=== PATIENT | male | born 1955 | race Native Hawaiian/Other Pacific Islander ===

== ENCOUNTER 2018-07-13 23:09 | Inpatient (IN) | payer MEDICARE ==
--- NOTE | 2018-07-13 23:27 | ED ---
General Adult HPI - General Chief complaint: Neuro Symptoms/Deficit Stated complaint: Slurred speech Source: patient, family Mode of arrival: ambulatory Limitations: no limitations - Related Data Home Medications Medication Instructions Recorded Confirmed Ergocalciferol (Vitamin D2) 50,000 unit PO Q30D 07/13/18 07/13/18 [Drisdol] Ibuprofen [Advil] 400 mg PO Q8HR PRN 07/13/18 07/13/18 Ranitidine HCl [Zantac] 150 mg PO BID 07/13/18 07/13/18 Allergies Allergy/AdvReac Type Severity Reaction Status Date / Time No Known Allergies Allergy Unverified 07/13/18 23:41 Review of Systems ROS Statement: Those systems with pertinent positive or pertinent negative responses have been documented in the HPI. ROS Other: All systems not noted in ROS Statement are negative. Past Medical History Past Medical History: Hyperlipidemia Additional Past Medical History / Comment(s): pancreatitis History of Any Multi-Drug Resistant Organisms: None Reported Past Surgical History: Hernia Repair, Orthopedic Surgery Additional Past Surgical History / Comment(s): cervial fusion c6-c7, rotator cuff Past Psychological History: No Psychological Hx Reported Smoking Status: Current every day smoker Past Alcohol Use History: None Reported Past Drug Use History: Marijuana General Exam Limitations: no limitations Course Vital Signs 07/13/18 23:12 Temperature 98.0 F Pulse Rate 67 Respiratory 16 Rate Blood Pressure 131/84 O2 Sat by Pulse 100 Oximetry Medical Decision Making - Medical Decision Making Dictation was produced using [employer] dictation software. please excuse any grammatical, word or spelling errors. Chief Complaint: 62-year-old male past medical history dyslipidemia pancreatitis presents with strokelike symptoms. History of Present Illness: She states his symptoms started approximately 45 minutes prior to arrival. He states it lasted only 10-15 minutes. He was in the car when he had some right lower facial drooping and slurred speech. This was noticed by his significant other also Tested this. Patient otherwise feels normal now. Denies any history of stroke. There is strong family history of stroke. Does have history of dyslipidemia. He is noncompliant with his medication. Patient denies any symptoms now. The ROS documented in this emergency department record has been reviewed and confirmed by me. Those systems with pertinent positive or negative responses have been documented in the HPI. All other systems are other negative and/or noncontributory. PHYSICAL EXAM: General Impression: Alert and oriented x3, not in acute distress HEENT: Normocephalic atraumatic, extra-ocular movements intact, pupils equal and reactive to light bilaterally, mucous membranes moist. Cardiovascular: Heart regular rate and rhythm, S1&S2 audible, no murmurs, rubs or gallops Chest: Lungs clear to auscultation bilaterally, no rhonchi, no wheeze, no rales Abdomen: Bowel sounds present, abdomen soft, non-tender, non-distended, no organomegaly Musculoskeletal: Pulses present and equal in all extremities, no peripheral edema Motor: Power 5/5 bilaterally, no focal deficits noted Neurological: CN II-XII grossly intact, no focal motor or sensory deficits noted Skin: Intact with no visualized rashes Psych: Normal affect and mood ED course: 62-year-old male with clinical presentation consistent with transient ischemic attack. Vital signs upon arrival are within acceptable limits. Laboratory evaluation obtained. Laboratory evaluation unremarkable. X-ray shows no acute processes. Brain CT shows no intracranial acute processes however there is findings of bilateral mastoiditis. Patient given 1 dose of clindamycin. Patient be admitted for TIA workup. Patient given aspirin. EKG interpretation: Ventricular rate 63, normal sinus rhythm, NY interval 184, QRS 70, QTC 419. No NY prolongation, no QTC prolongation, no ST or T-wave changes noted. . Overall, this EKG is unremarkable - Lab Data Result diagrams: 07/13/18 23:30 07/13/18 23:30 Lab Results 07/13/18 07/13/18 07/13/18 Range/Units 23:30 23:30 23:30 WBC 10.6 (3.8-10.6) k/uL RBC 4.75 (4.30-5.90) m/uL Hgb 13.8 (13.0-17.5) gm/dL Hct 41.4 (39.0-53.0) % MCV 87.1 (80.0-100.0) fL MCH 29.1 (25.0-35.0) pg MCHC 33.4 (31.0-37.0) g/dL RDW 14.3 (11.5-15.5) % Plt Count 137 L (150-450) k/uL Neutrophils % 64 % Lymphocytes % 30 % Monocytes % 4 % Eosinophils % 1 % Basophils % 1 % Neutrophils # 6.8 (1.3-7.7) k/uL Lymphocytes # 3.1 (1.0-4.8) k/uL Monocytes # 0.4 (0-1.0) k/uL Eosinophils # 0.1 (0-0.7) k/uL Basophils # 0.1 (0-0.2) k/uL PT (9.0-12.0) sec INR (<1.2) APTT (22.0-30.0) sec Sodium 138 (137-145) mmol/L Potassium 3.9 (3.5-5.1) mmol/L Chloride 106 (98-107) mmol/L Carbon Dioxide 24 (22-30) mmol/L Anion Gap 8 mmol/L BUN 11 (9-20) mg/dL Creatinine 0.81 (0.66-1.25) mg/dL Est GFR (CKD-EPI)AfAm >90 (>60 ml/min/1.73 sqM) Est GFR (CKD-EPI)NonAf >90 (>60 ml/min/1.73 sqM) Glucose 107 H (74-99) mg/dL Calcium 9.6 (8.4-10.2) mg/dL Total Bilirubin 0.8 (0.2-1.3) mg/dL AST 28 (17-59) U/L ALT 35 (21-72) U/L Alkaline Phosphatase 126 (38-126) U/L Total Creatine Kinase 123 (55-170) U/L CK-MB (CK-2) 0.9 (0.0-2.4) ng/mL CK-MB (CK-2) Rel Index 0.7 Troponin I <0.012 (0.000-0.034) ng/mL Total Protein 7.5 (6.3-8.2) g/dL Albumin 4.4 (3.5-5.0) g/dL 07/13/18 Range/Units 23:30 WBC (3.8-10.6) k/uL RBC (4.30-5.90) m/uL Hgb (13.0-17.5) gm/dL Hct (39.0-53.0) % MCV (80.0-100.0) fL MCH (25.0-35.0) pg MCHC (31.0-37.0) g/dL RDW (11.5-15.5) % Plt Count (150-450) k/uL Neutrophils % % Lymphocytes % % Monocytes % % Eosinophils % % Basophils % % Neutrophils # (1.3-7.7) k/uL Lymphocytes # (1.0-4.8) k/uL Monocytes # (0-1.0) k/uL Eosinophils # (0-0.7) k/uL Basophils # (0-0.2) k/uL PT 10.1 (9.0-12.0) sec INR 0.9 (<1.2) APTT 24.0 (22.0-30.0) sec Sodium (137-145) mmol/L Potassium (3.5-5.1) mmol/L Chloride (98-107) mmol/L Carbon Dioxide (22-30) mmol/L Anion Gap mmol/L BUN (9-20) mg/dL Creatinine (0.66-1.25) mg/dL Est GFR (CKD-EPI)AfAm (>60 ml/min/1.73 sqM) Est GFR (CKD-EPI)NonAf (>60 ml/min/1.73 sqM) Glucose (74-99) mg/dL Calcium (8.4-10.2) mg/dL Total Bilirubin (0.2-1.3) mg/dL AST (17-59) U/L ALT (21-72) U/L Alkaline Phosphatase (38-126) U/L Total Creatine Kinase (55-170) U/L CK-MB (CK-2) (0.0-2.4) ng/mL CK-MB (CK-2) Rel Index Troponin I (0.000-0.034) ng/mL Total Protein (6.3-8.2) g/dL Albumin (3.5-5.0) g/dL Disposition Clinical Impression: Transient cerebral ischemia Disposition: ADMITTED IP TO THIS HOSP Condition: Fair Referrals: George Clinton MD [Primary Care Provider] - 1-2 days Decision Time: 00:33
[2018-07-13 23:50] LABS: Basophils # (A) 0.1 k/uL (0-0.2); Basophils % (A) 1 %; Eosinophils # (A) 0.1 k/uL (0-0.7); Eosinophils % (A) 1 %; HCT 41.4 % (39.0-53.0); HGB 13.8 gm/dL (13.0-17.5); Lymphocytes # (A) 3.1 k/uL (1.0-4.8); Lymphocytes % (A) 30 %; MCH 29.1 pg (25.0-35.0); MCHC 33.4 g/dL (31.0-37.0); MCV 87.1 fL (80.0-100.0); Mean Platelet Volume 8.1; Monocytes # (A) 0.4 k/uL (0-1.0); Monocytes % (A) 4 %; Neutrophils # (A) 6.8 k/uL (1.3-7.7); Neutrophils % (A) 64 %; Platelet Count 137 k/uL (150-450); RBC 4.75 m/uL (4.30-5.90); RDW 14.3 % (11.5-15.5); WBC 10.6 k/uL (3.8-10.6)
[2018-07-14] LABS: INR 0.9 (<1.2); Prothrombin Time 10.1 sec (9.0-12.0)
--- NOTE | 2018-07-14 00:04 | CT ---
EXAMINATION TYPE: CT brain wo con DATE OF EXAM: 07/13/2018 COMPARISON: None HISTORY: Pt. has Neuro Deficits, slurred speech. CT DLP: 1042.4 mGycm Automated exposure control for dose reduction was used. FINDINGS: Ventricles of normal size. There is no mass effect nor midline shift. There is no sign of intracrania l hemorrhage. The calvarium is intact. IMPRESSION: NEGATIVE HEAD CT SCAN. MINIMAL BILATERAL MASTOIDITIS NOTED.
--- NOTE | 2018-07-14 00:05 | XR ---
EXAMINATION TYPE: XR chest 1V portable DATE OF EXAM: 07/13/2018 COMPARISON: NONE HISTORY: Altered mental status TECHNIQUE: Single frontal view of the chest is obtained. FINDINGS: There is no heart failure nor confluent pneumonic infiltrate. Costophrenic angles are danae r. Thoracic aorta is atheromatous. There are chest leads. There is no pleural effusion. IMPRESSION: No active cardiopulmonary disease. Normal heart.
[2018-07-14 00:10] LABS: ALT 35 U/L (21-72); AST 28 U/L (17-59); Albumin 4.4 g/dL (3.5-5.0); Alkaline Phosphatase 126 U/L (38-126); Anion Gap 8 mmol/L; Blood Urea Nitrogen 11 mg/dL (9-20); Calcium 9.6 mg/dL (8.4-10.2); Carbon Dioxide 24 mmol/L (22-30); Chloride 106 mmol/L (98-107); Glucose 107 mg/dL (74-99); Potassium 3.9 mmol/L (3.5-5.1); Sodium 138 mmol/L (137-145); Total Bilirubin 0.8 mg/dL (0.2-1.3); Total Protein 7.5 g/dL (6.3-8.2)
[2018-07-14 00:14] LABS: Creatine Kinase 123 U/L (55-170)
[2018-07-14 00:26] LABS: Creatine Kinase MB 0.9 ng/mL (0.0-2.4); Troponin I <0.012 ng/mL (0.000-0.034)
[2018-07-14] MEDS ORDERED: ASPIRIN 81 MG PO STA (00:33)
[2018-07-14] MEDS: CLINDAMYCIN 600 MG in DEXTROSE 5% IN WATER 50 ML IVPB SCH ×8 (02:29→23:12)
[2018-07-14] MEDS ORDERED: IBUPROFEN 400 MG TAB PO PRN (09:49)
[2018-07-14] MEDS: FAMOTIDINE 20 MG TAB PO SCH ×2 (10:31→20:58)
[2018-07-14] MEDS ORDERED: LORazepam 2 MG/ML INJ IV STA (16:32)
--- NOTE | 2018-07-14 16:40 | HP ---
HISTORY AND PHYSICAL DATE OF ADMISSION: 07/14/2018 DATE OF SERVICE: 07/14/2018 PRESENTING COMPLAINT: Slurring of speech. HISTORY OF PRESENTING COMPLAINT: Pleasant 62-year-old patient of Dr. Clinton from [place] presents with his . Yesterday evening around 10:00 he came home. His noted that he was talking a bit funny, speech was a bit slurred, right side of the mouth slightly pulled down. Patient's symptoms lasted about 15 minutes, then completely resolved. There was no headache. No double vision. No weakness in the arm or leg. No trouble with swallowing. Symptoms did not recur after the same. Patient presented to the ER. The patient is known to have hyperlipidemia, triglyceridemia. Patient has never taken his medication. Patient also continues to smoke. Patient is on disability from a prior cervical spine surgery. REVIEW OF SYSTEMS: CONSTITUTIONAL: None. HEENT: None. RESPIRATORY: None. CARDIOVASCULAR: None. GASTROINTESTINAL: Heartburn. GENITOURINARY: None. MUSCULOSKELETAL: Chronic cervical and lower back pain. DERMATOLOGICAL: None. HEMATOLOGICAL: None. LYMPHATICS: None. PSYCHIATRY: None. NEUROLOGICAL: As above. PAST MEDICAL HISTORY: 1. GERD. 2. Hyperlipidemia. 3. Chronic cervical and back pain. 4. Pancreatitis. PAST SURGICAL HISTORY: 1. Hernia repair. 2. Cervical fusion, C6-C7. 3. Bilateral rotator cuff repair. 4. Hiatal hernia repair. SOCIAL HISTORY: . He is on disability. Used to work on the railroad. Has been smoking a pack a day for close to 55 years. Denies alcohol. FAMILY HISTORY: Coronary artery disease. Father had metastatic lung cancer. HOME MEDICATIONS: 1. Suboxone 1 sublingually b.i.d. Strength 8 mg/2 mg. 2. Advil 400 mg q.8 p.r.n. 3. Zantac 150 mg b.i.d. 4. Vitamin D2 50,000 units every 30 days. ALLERGIES: NONE. PHYSICAL EXAMINATION: VITAL SIGNS ON PRESENTATION: Temperature 98, pulse 67, respiration 16, blood pressure 113/84, pulse ox 100% on room air. GENERAL APPEARANCE: Average build. Sitting up. Not in distress. EYES: Pupils equal. Conjunctivae normal. HEENT: External appearance of nose and ears normal. Oral cavity normal. NECK: JVD not raised. Mass not palpable. RESPIRATORY: Effort normal. LUNGS: Slightly decreased breath sounds. CARDIOVASCULAR: First and second sounds normal. No edema. ABDOMEN: Soft, non-tender. Liver and spleen not palpable. LYMPHATIC: No lymph node palpable in neck or axillae. PSYCHIATRY: Alert and oriented x3. Mood and affect normal. NEUROLOGICAL: Pupils equal. Cranial nerves questionable slight drooping of the right corner of the mouth. Power and sensation grossly intact. EXTREMITIES: Power and sensation, reflexes equal and symmetrical. Plantars are downgoing. INVESTIGATIONS: White count 10.6, hemoglobin 13.8, potassium 3.9, troponin negative. EKG personally reviewed by me shows normal sinus rhythm. Chest x-ray film personally reviewed by me shows no obvious infiltrates. CT scan of the brain negative. ASSESSMENT: 1. This is a patient who presented with 15 minutes of symptoms of slurring of speech, mouth pulling to the right side, with symptoms completely gone. Patient's risk factors for stroke include hyperlipidemia and smoking. 2. Hyperlipidemia. Patient does not take medication. 3. Chronic nicotine dependence. Patient is a cigarette smoker. PLAN: MRI of the brain with and without contrast has been ordered. Also will do an MRA to include the carotid of the neck. Also ordered 2D echocardiogram. Patient was started on aspirin and Lipitor. When I saw the patient this morning he was very keen to go home. I did explain to him that his testing is important. He does understand. He was also told that this could lead to a severe stroke if he does not wait for the results to come back and have a plan. He is still very insistent about going home. I did talk to the patient and his at length. Above testing has been ordered. No neurology service is available at our hospital. It was also discussed with the patient that, depending on findings, patient may need to be transferred out. MMODL / IJN: [id number] /
--- NOTE | 2018-07-14 17:46 | MR ---
EXAMINATION TYPE: MR angio neck wo/w con DATE OF EXAM: 07/14/2018 COMPARISON: HISTORY: Facial numbness for approximately 10 minutes, TIA CONTRAST: Standard multiplanar, multisequence MRI departmental protocol utilizing 7.5 mL intravenous Gadavist g adolinium contrast. FINDINGS: There is arterial flow in both vertebral arteries. There is arterial flow in the common int ernal and external carotid arteries bilaterally. Vertebral arteries are fairly symmetric. Exam is black ited slightly by motion. There is mild plaque at the origin left internal carotid artery and lumen na rrowing of 40%. There is approximate 40% stenosis of the origin of the right external carotid artery. There is normal branching pattern of the great vessels on the aortic arch. There is bilateral patenc y of the subclavian arteries. I see no evidence of vertebral artery stenosis. There is arterial flow in the vertebrobasilar artery system. There is no evidence of vertebral artery or carotid artery aneu rysm or dissection. IMPRESSION: The exam shows approximately 40% stenosis origin of the left internal carotid artery and 40% stenosis origin right external carotid artery.
--- NOTE | 2018-07-14 18:01 | MR ---
EXAMINATION TYPE: MR brain wo/w con DATE OF EXAM: 07/14/2018 COMPARISON: None HISTORY: Facial numbness for approximately 10 minutes, TIA TECHNIQUE: Multiplanar, multisequence images of the brain and brainstem is performed without and with IV contras t, utilizing 7.5 mL intravenous Gadavist . FINDINGS: There is a 7 mm area of slight increased signal in the lateral left parietal lobe on the di ffusion images consistent with an acute cortical infarct. This has also increased signal on the FLAIR images. There is no midline shift. There is 4 mm focus of increased signal in white matter of the le ft parietal lobe on the diffusion images also consistent with acute white matter infarct. The brainstem is intact. Cerebellum is intact. Corpus callosum is intact. Sella turcica appears luz marina l. The contrast images show no pathologic enhancement. Pituitary stalk is midline. There is normal co ntrast opacification of the venous sinuses. There is normal contrast opacification of the anterior mi ddle and posterior cerebral arteries. There is arterial flow in the vertebrobasilar artery system. IMPRESSION: The exam shows small cortical and white matter infarcts in the left parietal lobe that ap pear acute. No hemorrhage seen.
[2018-07-14] MEDS: NICOTINE 21MG/24HR PATCH TRANSDERM SCH (18:10)
[2018-07-14] MEDS: ENOXAPARIN 40 MG/0.4 ML SYRINGE SQ SCH (18:10)
[2018-07-14] MEDS: NON-FORMULARY DRUG (Buprenorphine Hcl/Naloxone Hcl [Suboxone 8 Mg-2 Mg Sl Film] 1 FILM) SL SCH (20:59)
[2018-07-15 06:43] LABS: Cholesterol 294 mg/dL (<200); HDL Cholesterol 32 mg/dL (40-60)
[2018-07-15 06:55] LABS: Triglycerides 671 mg/dL (<150)
[2018-07-15] MEDS: NON-FORMULARY DRUG (Buprenorphine Hcl/Naloxone Hcl [Suboxone 8 Mg-2 Mg Sl Film] 1 FILM) SL SCH ×2 (07:53→22:51)
[2018-07-15] MEDS: ENOXAPARIN 40 MG/0.4 ML SYRINGE SQ SCH (08:00)
[2018-07-15] MEDS: ASPIRIN 325 MG TAB PO SCH (08:00)
[2018-07-15] MEDS: NICOTINE 21MG/24HR PATCH TRANSDERM SCH (08:01)
[2018-07-15] MEDS: ATORVASTATIN 40 MG TAB PO SCH (08:01)
[2018-07-15] MEDS: FAMOTIDINE 20 MG TAB PO SCH ×2 (08:01→21:01)
[2018-07-15] MEDS: CLINDAMYCIN 600 MG in DEXTROSE 5% IN WATER 50 ML IVPB SCH ×4 (09:05→18:01)
[2018-07-16] MEDS ORDERED: SODIUM CHLORIDE 0.9% 1,000 ML IV ONE (01:09)
--- NOTE | 2018-07-16 01:29 | CT ---
EXAMINATION TYPE: CT brain wo con DATE OF EXAM: 07/16/2018 COMPARISON: 07/13/2018 HISTORY: CODE STROKE CT DLP: 1134.4 mGycm Automated exposure control for dose reduction was used. FINDINGS: Ventricles have normal size. There is no mass effect nor midline shift. There is no sign of intracran ial hemorrhage. The calvarium is intact. IMPRESSION: NEGATIVE CT SCAN OF THE BRAIN. NO CHANGE COMPARED TO LAST EXAM. MILD BILATERAL MASTOIDITIS NOTED.
[2018-07-16] MEDS ORDERED: ASPIRIN 325 MG TAB PO STA (01:32)
--- NOTE | 2018-07-16 01:53 | PN ---
PROGRESS NOTE DATE OF SERVICE: 07/15/2018 PRESENTING COMPLAINT: Slurred speech. INTERVAL HISTORY: This patient was admitted with slurred speech and mouth pulled to the right. Speech improved but there was still some mouth being pulled to the right. MRI is showing stroke in the white matter and in the parietal area. Otherwise, patient doing well. No other focal symptoms. is present. Labs were reviewed. REVIEW OF SYSTEMS: Done for constitutional, cardiovascular, GI, pulmonary; relevant findings as above. CURRENT MEDICATIONS: Reviewed that include Lipitor 40 mg and aspirin. PHYSICAL EXAMINATION: Temperature 98.4, pulse 72, respiratory 18, blood pressure 130/73, pulse ox 96% on room air. GENERAL APPEARANCE: Sitting up, comfortable. EYES: Pupils equal. Conjunctivae normal. NECK: JVD not raised. Mass not palpable. Respiratory effort normal. LUNGS: Decreased breath sounds. CARDIOVASCULAR: First and second sounds normal. No edema. ABDOMEN: Soft, nontender. Liver and spleen not palpable. PSYCHIATRY: Alert and oriented x3. Mood and affect normal. NEUROLOGICAL: Mouth slightly pulled to the right. INVESTIGATIONS: Triglyceride 671, cholesterol 294, HDL 32. Neck MRA shows no critical stenosis of the carotids, about 40%. Brain MRI shows area of acute stroke in the lateral left parietal lobe and also in the white matter of the left parietal lobe. ASSESSMENT: 1. Acute stroke in the left parietal area and adjoining white matter area. At this point, need to consider the possibility of a cardiac source as this could be embolic. 2. Hyperlipidemia, uncontrolled. 3. Chronic nicotine dependence, patient is a cigarette smoker. PLAN: I had a very lengthy talk with the patient this evening. 2D echo results are pending. The patient will need a MAGALI to make a more definite diagnosis as a cardiac source is present. Consultation has been made to Cardiology for the same. The patient is agreeable for the procedure, understands the relevance. Continue current medication and treatment plan. Follow. MMODL / IJN: [id number] /
[2018-07-16 01:57] LABS: Basophils # (A) 0.1 k/uL (0-0.2); Basophils % (A) 1 %; Eosinophils # (A) 0.1 k/uL (0-0.7); Eosinophils % (A) 1 %; HCT 42.5 % (39.0-53.0); HGB 14.3 gm/dL (13.0-17.5); Lymphocytes # (A) 3.3 k/uL (1.0-4.8); Lymphocytes % (A) 42 %; MCH 29.2 pg (25.0-35.0); MCHC 33.6 g/dL (31.0-37.0); MCV 86.9 fL (80.0-100.0); Mean Platelet Volume 7.9; Monocytes # (A) 0.3 k/uL (0-1.0); Monocytes % (A) 4 %; Neutrophils # (A) 3.9 k/uL (1.3-7.7); Neutrophils % (A) 49 %; Platelet Count 142 k/uL (150-450); RDW 13.9 % (11.5-15.5); WBC 7.9 k/uL (3.8-10.6)
[2018-07-16 02:05] LABS: INR 0.9 (<1.2); Partial Thromboplastin Time 25.2 sec (22.0-30.0); Prothrombin Time 9.8 sec (9.0-12.0)
[2018-07-16 02:23] LABS: Anion Gap 7 mmol/L; Blood Urea Nitrogen 14 mg/dL (9-20); Calcium 9.2 mg/dL (8.4-10.2); Carbon Dioxide 24 mmol/L (22-30); Chloride 107 mmol/L (98-107); Glucose 102 mg/dL (74-99); Potassium 4.1 mmol/L (3.5-5.1); Sodium 138 mmol/L (137-145)
--- NOTE | 2018-07-16 06:26 | ECHOF ---
Referral Reason:r/o thrombus MEASUREMENTS -------- HEIGHT: 162.6 cm WEIGHT: 78.9 kg BP: 112/81 RVIDd: 3.5 cm (< 3.3) IVSd: 1.2 cm (0.6 - 1.1) LVIDd: 4.3 cm (3.9 - 5.3) LVPWd: 1.1 cm (0.6 - 1.1) IVSs: 1.9 cm LVIDs: 2.9 cm LVPWs: 2.0 cm LA Diam: 2.9 cm (2.7 - 3.8) LAESV Index (A-L): 18.68 ml/m Ao Diam: 3.9 cm (2.0 - 3.7) AV Cusp: 2.1 cm (1.5 - 2.6) MV EXCURSION: 18.048 mm (> 18.000) MV EF SLOPE: 97 mm/s (70 - 150) EPSS: 0.3 cm MV E Ludwig: 0.76 m/s MV DecT: 298 ms MV A Ludwig: 0.83 m/s MV E/A Ratio: 0.91 RAP: 5.00 mmHg RVSP: 21.98 mmHg FINDINGS -------- Sinus rhythm. This was a technically adequate study. The left ventricular size is normal. There is borderline concentric left ventricular hypertrophy. Overall left ventricular systolic function is normal with, an EF between 60 - 65 %. The right ventricle is mildly enlarged. Normal LA size by volume 22+/-6 ml/m2. The right atrium is normal in size. There is mild aortic valve sclerosis. Mild mitral annular calcification present. Mild tricuspid regurgitation present. Right ventricular systolic pressure is normal at < 35 mmHg. There is no pulmonic regurgitation present. The aortic root is dilated measuring 3.9cm. Normal inferior vena cava with normal inspiratory collapse consistent with estimated right atrial pre ssure of 5 mmHg. There is no pericardial effusion. CONCLUSIONS -------- 1. Sinus rhythm. 2. This was a technically adequate study. 3. The left ventricular size is normal. 4. There is borderline concentric left ventricular hypertrophy. 5. Overall left ventricular systolic function is normal with, an EF between 60 - 65 %. 6. The right ventricle is mildly enlarged. 7. Normal LA size by volume 22+/-6 ml/m2. 8. The right atrium is normal in size. 9. There is mild aortic valve sclerosis. 10. Mild mitral annular calcification present. 11. Mild tricuspid regurgitation present. 12. Right ventricular systolic pressure is normal at < 35 mmHg. 13. There is no pulmonic regurgitation present. 14. The aortic root is dilated measuring 3.9cm. 15. Normal inferior vena cava with normal inspiratory collapse consistent with estimated right atrial pressure of 5 mmHg. 16. There is no pericardial effusion. LEGAL TRANSCRIBER: Audrey Powers RDCS
[2018-07-16] MEDS: ASPIRIN 325 MG TAB PO SCH (10:16)
[2018-07-16] MEDS: ENOXAPARIN 40 MG/0.4 ML SYRINGE SQ SCH (10:16)
[2018-07-16] MEDS: FAMOTIDINE 20 MG TAB PO SCH ×2 (10:16→19:57)
[2018-07-16] MEDS: ATORVASTATIN 40 MG TAB PO SCH (10:16)
[2018-07-16] MEDS: NICOTINE 21MG/24HR PATCH TRANSDERM SCH (10:17)
[2018-07-16] MEDS ORDERED: SODIUM CHLORIDE 0.9% 500 ML 500 ML IV ONE (10:39)
[2018-07-16] MEDS: BENZOCAINE SPRAY 1 CAN TOPICAL ONE ×2 (10:40→10:46)
[2018-07-16] MEDS ORDERED: fentaNYL (PF) 50 MCG/ML 2 ML AMP IV ONE (10:49)
[2018-07-16] MEDS ORDERED: MIDAZOLAM 2 MG/2 ML VIAL IV ONE (10:49)
[2018-07-16] MEDS: SODIUM CHLORIDE 0.9% 1,000 ML IV SCH (11:00)
--- NOTE | 2018-07-16 11:26 | ECHOT ---
TRANSESOPHAGEAL ECHOCARDIOGRAM INDICATION: CVA to rule out cardiac source of thromboembolic phenomenon. PROCEDURE NOTE: After obtaining informed consent, transesophageal echocardiogram was performed in left lateral position using an Omni plane probe. Local and IV sedation were obtained using Xylocaine spray, intravenous Versed and fentanyl. Patient tolerated the procedure well without any obvious immediate complications. Patient received moderate conscious sedation. Total sedation time was 10 minutes. FINDINGS: 1. LEFT VENTRICLE: Left ventricle has normal size and systolic function. 2. Left atrium appears enlarged. Right atrium and right ventricle appear prominent. 3. Mitral valve is anatomically normal. There is trace mitral regurgitation noted. Aortic valve is a 3-leaflet valve. There is no displacement or regurgitation. 4. Tricuspid valve shows mild tricuspid regurgitation. 5. INTERATRIAL SEPTUM: Interatrial septum appears aneurysmal and with agitated saline contrast study with Valsalva maneuver. A few bubbles seem to cross across the septum. CONCLUSION: Patent foramen ovale with evidence of [id number] shunt with Valsalva. PLAN: Treat the patient with aggressive and optimal medical therapy at this time including aspirin, Lipitor, and we will arrange outpatient followup with Dr. Tabares for possible PFO closure. MMODL / IJN: [id number] /
[2018-07-16] MEDS: NON-FORMULARY DRUG (Buprenorphine Hcl/Naloxone Hcl [Suboxone 8 Mg-2 Mg Sl Film] 1 FILM) SL SCH (13:55)
--- NOTE | 2018-07-16 14:00 | P.CRDCN ---
History of Present Illness History of present illness: This is a pleasant 62-year-old male past medical history significant for dyslipidemia and gastroesophageal reflux disease. He is also a chronic daily smoker of tobacco and marijuana. He denies history of coronary artery disease, hypertension or diabetes mellitus. 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 He presented to the hospital 07/13 with symptoms of right-sided facial numbness and slurred speech the symptoms subsequently resolved on her own. He had another episode last night again of numbness to the right side of his face with slurred speech. The numbness of his face has resolved however he continues to have garbled speech at the time of my exam.. Brain CT obtained was negative with evidence of minimal bilateral mastoiditis noted. Repeat brain MRI this morning after having repeat of symptoms again is negative. Brain MRI shows small cortical white matter infarcts in the left parietal lobe that appear acute with no hemorrhage seen. We have been asked to perform a MAGALI. EKG reveals sinus mechanism with no acute ST or T wave abnormalities noted. Telemetry tracings unremarkable for acute arrhythmia. At the time of my exam: CONSTITUTIONAL: Denies fever. Denies chills. EYES: Denies blurred vision. Denies vision changes. Denies eye pain. EARS, NOSE, MOUTH & THROAT: Denies headache. Denies sore throat. Denies ear pain. CARDIOVASCULAR: Denies chest pain. Denies shortness of breath. Denies orthopnea. Denies PND. Denies palpitations. RESPIRATORY: Denies cough. GASTROINTESTINAL: Denies abdominal pain. Denies diarrhea. Denies constipation. Denies nausea. Denies vomiting. MUSCULOSKELETAL: Denies myalgias. INTEGUMENTARY: Denies pruitis. Denies rash. NEUROLOGIC: Denies numbness. Denies tingling. Denies weakness. PSYCHIATRIC: Denies anxiety. Denies depression. ENDOCRINE: Denies fatigue. Denies weight change. Denies polydipsia. Denies polyurina. GENITOURINARY: Denies burning, hematuria or urgency with micturation. HEMATOLOGIC: Denies history of anemia. Denies bleeding. Blood pressure 132/86 heart rate 63 afebrile maintaining oxygen saturation on room air GENERAL: This is a 62-year-old male in no apparent distress at the time of my examination. HEENT: Head is atraumatic, normocephalic. Pupils are equal, round. Sclerae anicteric. Conjunctivae are clear. Mucous membranes of the mouth are moist. Neck is supple. There is no jugular venous distention. No carotid bruit is heard. LUNGS: Clear to auscultation no wheezes, rales or rhonchi. No chest wall tenderness is noted on palpation or with deep breathing. HEART: Regular rate and rhythm without murmurs, rubs or gallops. S1 and S2 heard. ABDOMEN: Soft, nontender. Bowel sounds are heard. No organomegaly noted. EXTREMITIES: No evidence of peripheral edema and no calf tenderness noted. VASCULAR: Radial and dorsalis pedis pulses palpated, no evidence of clubbing. NEUROLOGIC: Patient is awake, alert and oriented x3. ASSESSMENT Acute CVA in the left parietal area Dyslipidemia Gastroesophageal reflux disease Chronic nicotine dependence PLAN Patient has been nothing by mouth since last night. We will perform a transesophageal echocardiogram this morning. The procedure has been explained in great detail with patient and his in he is agreeable to move forward with the above-stated procedure. The above impression and plan of care have been discussed and directed by the signing physician. Teena Armstrong, nurse practitioner, acting as scribe for signing physician. Past Medical History Past Medical History: GERD/Reflux, Hyperlipidemia Additional Past Medical History / Comment(s): Chronic cervical and back pain, pancreatitis History of Any Multi-Drug Resistant Organisms: None Reported Past Surgical History: Hernia Repair, Orthopedic Surgery Additional Past Surgical History / Comment(s): cervial fusion c6-c7, bilateral rotator cuff repairs, hiatal hernia repair, colonoscopy Past Anesthesia/Blood Transfusion Reactions: No Reported Reaction Smoking Status: Current every day smoker - Past Family History Father Family Medical History: Cancer, Coronary Artery Disease (CAD), Myocardial Infarction ([place]) Additional Family Medical History / Comment(s): Father from metatstatic lung cancer. Mother Family Medical History: Coronary Artery Disease (CAD), Myocardial Infarction ([place] ) Additional Family Medical History / Comment(s): Mother from "old age" Medications and Allergies Home Medications Medication Instructions Recorded Confirmed Type Ergocalciferol (Vitamin D2) 50,000 unit PO Q30D 07/13/18 07/13/18 History [Drisdol] Ibuprofen [Advil] 400 mg PO Q8HR PRN 07/13/18 07/13/18 History Ranitidine HCl [Zantac] 150 mg PO BID 07/13/18 07/13/18 History Buprenorphine HCl/Naloxone HCl 1 film SL BID 07/14/18 07/14/18 History [Suboxone 8 mg-2 mg Sl Film] Allergies Allergy/AdvReac Type Severity Reaction Status Date / Time No Known Allergies Allergy Unverified 07/13/18 23:41 Physical Exam Vitals: Vital Signs Temp Pulse Pulse Resp BP Pulse Ox 07/16/18 12:15 63 18 132/86 94 L 07/16/18 12:05 55 L 18 105/70 91 L 07/16/18 11:50 54 L 18 108/73 97 07/16/18 11:35 97.8 F 56 L 18 112/71 92 L 07/16/18 11:00 55 L 16 114/59 97 07/16/18 10:56 58 L 14 128/67 97 07/16/18 10:52 54 L 16 107/61 98 07/16/18 10:42 53 L 16 147/83 98 07/16/18 08:20 98.0 F 53 L 18 114/70 95 07/16/18 04:53 60 15 98/64 94 L 07/16/18 00:47 56 L 144/81 95 07/16/18 00:10 59 L 16 129/77 94 L 07/15/18 21:01 98.5 F 65 16 131/75 94 L 07/15/18 16:00 98.4 F 82 18 131/73 96 Intake and Output 07/15/18 07/16/18 07/16/18 22:59 06:59 14:59 Intake Total 260 600 318 Balance 260 600 318 Intake: IV 100 Oral 260 600 218 Other: Voiding Method Toilet Toilet # Voids 2 1 Weight 77.1 kg Results 07/16/18 01:30 07/16/18 01:30 Coagulation 07/16/18 Range/Units 01:30 PT 9.8 (9.0-12.0) sec APTT 25.2 (22.0-30.0) sec CBC 07/16/18 Range/Units 01:30 WBC 7.9 (3.8-10.6) k/uL RBC 4.90 (4.30-5.90) m/uL Hgb 14.3 (13.0-17.5) gm/dL Hct 42.5 (39.0-53.0) % Plt Count 142 L (150-450) k/uL Comprehensive Metabolic Panel 07/16/18 Range/Units 01:30 Sodium 138 (137-145) mmol/L Potassium 4.1 (3.5-5.1) mmol/L Chloride 107 (98-107) mmol/L Carbon Dioxide 24 (22-30) mmol/L BUN 14 (9-20) mg/dL Creatinine 0.82 (0.66-1.25) mg/dL Glucose 102 H (74-99) mg/dL Calcium 9.2 (8.4-10.2) mg/dL Current Medications Generic Name Dose Route Start Last Admin Trade Name Freq PRN Reason Stop Dose Admin Aspirin 325 mg 07/15/18 09:00 07/16/18 10:16 Aspirin PO 325 mg DAILY JUVENAL Administration Atorvastatin Calcium 40 mg 07/15/18 09:00 07/16/18 10:16 Lipitor PO 40 mg DAILY JUVENAL Administration Enoxaparin Sodium 40 mg 07/14/18 15:45 07/16/18 10:16 Lovenox SQ 40 mg DAILY JUVENAL Administration Ergocalciferol 50,000 unit 07/27/18 09:00 Vitamin D2 PO Q30D JUVENAL Famotidine 20 mg 07/14/18 09:00 07/16/18 10:16 Pepcid PO 20 mg BID JUVENAL Administration Sodium Chloride 1,000 mls @ 20 mls/hr 07/16/18 11:15 Saline 0.9% IV .Q24H JUVENAL Ibuprofen 400 mg 07/14/18 09:49 Motrin PO Q8HR PRN Pain Nicotine 1 patch 07/14/18 15:45 07/16/18 10:17 Habitrol 21mg/24hr Patch TRANSDERM 1 patch DAILY JUVENAL Administration Non-Formulary Medication 1 film 07/14/18 21:00 07/16/18 13:55 Buprenorphine Hcl/Naloxone Hcl [Suboxone 8 Mg-2 Mg Sl Film] SL Not Given BID JUVENAL Intake and Output 07/15/18 07/16/18 07/16/18 22:59 06:59 14:59 Intake Total 260 600 318 Balance 260 600 318 Intake: IV 100 Oral 260 600 218 Other: Voiding Method Toilet Toilet # Voids 2 1 Weight 77.1 kg 07/16/18 01:30 07/16/18 01:30
--- NOTE | 2018-07-17 06:58 | PN ---
PROGRESS NOTE DATE OF SERVICE: 07/16/2018. PRESENTING COMPLAINT: Slurred speech. INTERVAL HISTORY: This patient initially presented with slurred speech, mouth pulled to the right. Symptoms did improve. MRI did show stroke. The patient early hours of this morning had another episode. The robot team from Neurology was contacted. They suggested to follow closely. The patient this morning did undergo MAGALI by Dr. Jamie Garcia and PFO was confirmed. The patient is already on antiplatelet agent. The patient is resting otherwise comfortably. Symptoms are greatly improved. REVIEW OF SYSTEMS: Done for constitutional, cardiovascular, GI, pulmonary, neuro; relevant findings as above. CURRENT MEDICATIONS: Reviewed, which include Lipitor, aspirin. PHYSICAL EXAMINATION: Temperature 97.6 pulse 55, respiratory 18, blood pressure 112/65, pulse ox 98% on room air. GENERAL APPEARANCE: Lying in bed, comfortable. EYES: Pupils equal. Conjunctivae normal. NECK: JVD not raised. Mass not palpable. Respiratory effort normal. LUNGS: Decreased breath sounds. CARDIOVASCULAR: First and second sounds normal. No edema. ABDOMEN: Soft, nontender. Liver and spleen not palpable. PSYCHIATRY: Alert and oriented x3. Mood and affect normal NEUROLOGIC: Mouth slightly pulled to the right. INVESTIGATIONS: White count 7.9, hemoglobin 14.3, potassium 4.1. MAGALI results noted. ASSESSMENT: 1. Acute stroke in the left parietal area with some worsening of it this morning that improved. 2. Hyperlipidemia, uncontrolled. 3. Chronic nicotine dependence, patient is a cigarette smoker. 4. Patent foramen ovale in the setting of a stroke. Will need to be closed. PLAN: Discussed with Dr. Megan Garcia this morning. Both of us feel that the platelet agents are good for now. We will watch the patient another 24 hours. The patient will need to see Dr. Tabares as an outpatient for closure of the PFO. Care was discussed with the patient. MMODL / IJN: [id number] /
[2018-07-17] MEDS: ATORVASTATIN 40 MG TAB PO SCH (08:30)
[2018-07-17] MEDS: FAMOTIDINE 20 MG TAB PO SCH (08:31)
[2018-07-17] MEDS: ENOXAPARIN 40 MG/0.4 ML SYRINGE SQ SCH (08:31)
[2018-07-17] MEDS: ASPIRIN 325 MG TAB PO SCH (08:31)
[2018-07-17] MEDS: NICOTINE 21MG/24HR PATCH TRANSDERM SCH (09:30)
[2018-07-17] MEDS: SODIUM CHLORIDE 0.9% 1,000 ML IV SCH (14:29)
[2018-07-17 15:26] VITALS: RESP 18
[2018-07-17 15:29] VITALS: BP 147/82; PULSE 58; TEMP 97.8
--- NOTE | 2018-07-18 05:46 | DS ---
DISCHARGE SUMMARY DATE OF ADMISSION: 07/13/2018 DATE OF DISCHARGE: 07/17/2018 FINAL DIAGNOSES: 1. Acute stroke in the left parietal area and in the white matter. 2. Hyperlipidemia, uncontrolled. 3. Chronic nicotine dependence. Patient is a cigarette smoker. 4. Patent foramen ovale. HOSPITAL COURSE: This patient presented with some right facial weakness and slurring of the speech. MRI did confirm an area of acute stroke in the left parietal area and in the white matter. Subsequently, a MAGALI was done that did show a PFO with bubbles moving from right to the left. The patient will need closure for the same. The patient was nearly back to his baseline by the time of discharge. Today care was discussed in detail with the patient and the . Several questions were answered including smoking cessation was reinforced. More than 35 minutes was spent in discussion on discharge planning. PHYSICAL EXAMINATION: On examination, temperature 97.8, pulse 58, respiration 18, blood pressure 147/82, pulse ox 97% on room air. LUNGS: Slightly decreased breath sounds. No neuro deficits. INVESTIGATIONS: Triglycerides 671, cholesterol 294. CONSULTATIONS: Dr. Jamie Garcia from Cardiology who did the MAGALI. The patient's neck MRA did not show any critical stenosis. DISCHARGE MEDICATIONS: 1. Vitamin D2, 50,000 units every 30 days. 2. Zantac 150 mg b.i.d. 3. Suboxone 8/2 one film sublingual b.i.d. 4. Aspirin 81 mg b.i.d. 5. Lipitor 80 mg q.h.s. 6. Nicotine 21 mg patch. Follow up with Dr. Tabares in 3 days to arrange for a PFO closure. Follow up with Dr. Clinton in [place]. MMKRISTENL / MACKN: [id number] /
[2018-07-27] MEDS ORDERED: ERGOCALCIFEROL 50,000 UNIT CAP PO SCH (09:00)
== END 2018-07-17 18:28 | disposition home or self-care (01) | DRG 65 ==
LOC: EC 23:09 → 3SCARD 07-14 00:35 → OBSVTOIN 07-15 14:13
PROVIDERS: ADMIT Hospitalist; ATTEND Hospitalist
PROC: B246ZZ4 Ultrasonography of Right and Left Heart, Transesophageal (ICD-10-PCS; principal; 2018-07-16 10:37)
DX: I63.9 Cerebral infarction, unspecified (principal); Q21.1 Atrial septal defect; R47.81 Slurred speech; R29.810 Facial weakness; R40.2362 Coma scale, best motor response, obeys commands, at arrival to emergency department; R40.2142 Coma scale, eyes open, spontaneous, at arrival to emergency department; R40.2252 Coma scale, best verbal response, oriented, at arrival to emergency department; R29.700 NIHSS score 0; H70.93 Unspecified mastoiditis, bilateral; G89.29 Other chronic pain; M54.2 Cervicalgia; M54.9 Dorsalgia, unspecified; K21.9 Gastro-esophageal reflux disease without esophagitis; E78.5 Hyperlipidemia, unspecified; F17.210 Nicotine dependence, cigarettes, uncomplicated; Z71.6 Tobacco abuse counseling; Z91.14 Patient's other noncompliance with medication regimen; Z79.899 Other long term (current) drug therapy; Z98.1 Arthrodesis status; Z87.19 Personal history of other diseases of the digestive system; Z82.3 Family history of stroke; Z80.1 Family history of malignant neoplasm of trachea, bronchus and lung; Z82.49 Family history of ischemic heart disease and other diseases of the circulatory system
CPT/HCPCS: 36415; 70450; 70549; 70553; 71045; 80048; 80053; 80061; 82550; 82553; 84484; 85025; 85610; 85730; 87040; 93005; 93306; 93312; 93320; 93325; 96365; 96372; 96375; 99285

== ENCOUNTER → 2018-08-22 | Outpatient (CLI) | payer MEDICARE ==
[2018-08-22 15:49] LABS: HGB 13.5 gm/dL (13.0-17.5); MCH 29.2 pg (25.0-35.0); MCHC 33.7 g/dL (31.0-37.0); MCV 86.7 fL (80.0-100.0); Mean Platelet Volume 8.2; Platelet Count 147 k/uL (150-450); RBC 4.62 m/uL (4.30-5.90); RDW 13.6 % (11.5-15.5); WBC 7.9 k/uL (3.8-10.6)
[2018-08-22 16:00] LABS: Anion Gap 7 mmol/L; Blood Urea Nitrogen 15 mg/dL (9-20); Carbon Dioxide 30 mmol/L (22-30); Chloride 104 mmol/L (98-107); Potassium 4.8 mmol/L (3.5-5.1); Sodium 141 mmol/L (137-145)
== END ==
LOC: LABPAT 14:58
PROVIDERS: ATTEND Internal Medicine Interventional Cardiology
DX: Z01.812 Encounter for preprocedural laboratory examination (principal); E78.5 Hyperlipidemia, unspecified; G45.9 Transient cerebral ischemic attack, unspecified
CPT/HCPCS: 36415; 80051; 82565; 84520; 85027

== ENCOUNTER 2018-09-07 06:13 | Day surgery (SDC) | payer MEDICARE ==
[2018-09-07] MEDS ORDERED: ceFAZolin IN SWFI 2 GM/20 ML SYRINGE IVP ONE ×2 (07:00→08:00)
[2018-09-07] MEDS: SODIUM CHLORIDE 0.9% 1,000 ML IV SCH ×2 (07:12→19:14)
[2018-09-07] MEDS ORDERED: LIDOCAINE 1% INJ 10MG/ML (20 ML MDV) SQ ONE (08:00)
[2018-09-07] MEDS ORDERED: MIDAZOLAM 2 MG/2 ML VIAL IVP ONE ×2 (08:01→08:10)
[2018-09-07] MEDS ORDERED: fentaNYL (PF) 50 MCG/ML 2 ML AMP IVP ONE (08:08)
[2018-09-07] MEDS ORDERED: HEPARIN SODIUM 1,000 UN/ML (10ML VL) IV ONE (08:08)
[2018-09-07] MEDS ORDERED: CLOPIDOGREL 75 MG TAB PO ONE (09:03)
[2018-09-07] MEDS ORDERED: IOPAMIDOL-250 100ML BTL IV ONE (09:04)
[2018-09-07] MEDS ORDERED: NICOTINE POLACRILEX 2 MG GUM BUCCAL PRN (09:05)
--- NOTE | 2018-09-07 09:28 | LTR ---
September 07, 2018 Re: Farooq Becerra Dear Dr. Clinton: Mr. Farooq Becerra underwent successful percutaneous closure of patent foramen ovale using Amplatzer PFO occluder device with good results and without any residual shunt. Thank you for allowing us to participate in his care and please do not hesitate to call if you have any question or concern. Sincerely, Herbert Tabares MD [id number] / IJN: [id number] /
--- NOTE | 2018-09-07 09:49 | PCN ---
PROCEDURE NOTE DATE OF SERVICE: September 07, 2018 PERFORMING PHYSICIAN: Herbert Tabares MD, hand rug cleaner. PROCEDURE PERFORMED: 1. Intracardiac echocardiogram imaging. 2. Successful percutaneous closure patent foramen ovale using 25 mm Amplatzer PFO occluder device with good results and without any residual shunt. 3. Right atrial angiogram. INDICATION: This is a pleasant 62-year-old gentleman who sees Dr. Garcia in the office on a regular basis who was admitted to the hospital recently with a CVA. Transesophageal echocardiogram was done by Dr. Garcia and revealed hyperdynamic interatrial septum with evidence of small patent foramen ovale. Because of that, he was advised to undergo a PFO closure. APPROACH: Right common femoral vein. COMPLICATION: None. LEVEL OF SEDATION: Moderate with sedation length of 61 minutes. PROCEDURE DESCRIPTION: After obtaining an informed consent, the patient was brought to the cardiac laborer pipeline. The right common femoral vein was cannulated x2 using a micropuncture needle, the micropuncture wire passed easily then I placed an 8-Swedish sheath in the right common femoral vein. I did place two 8-Swedish sheaths. At that point, anticoagulation was initiated using heparin and the patient was given 8000 units of heparin at the beginning of the procedure with ACT monitoring throughout the procedure. Subsequently, I did advance the intracardiac echocardiogram probe through the venous sheath under fluoroscopy guidance to the right atrium where I did intracardiac echocardiogram images starting with the home view and interrogation of the interatrial septum color-flow going through that small patent foramen ovale. I did cross the patent foramen ovale using multipurpose catheter with a Glidewire and the Glidewire was advanced to the left upper pulmonary vein where at that point I did advance a multipurpose catheter to the left upper pulmonary vein. The multipurpose catheter was secured and closed by the end with a . At that point, I did interrogate again using intracardiac echocardiogram and I decided to pursue with a 25 mm Amplatzer PFO occluder device. The device was prepped under saline. Subsequently I did exchange my 11 cm 8-Swedish sheath into the delivery sheath of the device. I did cross interatrial septum and the sheath was advanced to the left atrium. After that, I did load the Amplatzer PFO occluder under continuous saline flush into the sheath and the device was advanced all the way throughout the cable by pushing the cable all the way to the left atrium where I did deploy the left atrial occluder first and subsequently I pulled the whole device toward the septum and then I deployed the right atrial occluder. I did multiple interrogations before I released the device. I did interrogation using the ICE where I assessed for any pinch on the SVC or the aorta and there was no pinch. I also assessed the stabilization of the device by doing pulling on the cable. I did after that release the device under fluoroscopy guidance. Finally, after using the device, I interrogated again using intracardiac echocardiogram images. There was no residual shunt. Finally I did right atrial angiogram. The procedure was completed without any complication. POSTPROCEDURE MANAGEMENT: 1. Dual antiplatelet therapy for 30 days. 2. Aspirin for 6 months. 3. Echocardiogram before discharge tomorrow, in one week, in 4 weeks, and in 6 months. MMPIETRO / MACKN: [id number] /
[2018-09-07 10:14] LABS: Basophils # (A) 0.1 k/uL (0-0.2); Basophils % (A) 1 %; Eosinophils # (A) 0.2 k/uL (0-0.7); Eosinophils % (A) 2 %; HCT 39.5 % (39.0-53.0); HGB 13.1 gm/dL (13.0-17.5); Lymphocytes # (A) 3.1 k/uL (1.0-4.8); Lymphocytes % (A) 40 %; MCH 28.8 pg (25.0-35.0); MCHC 33.1 g/dL (31.0-37.0); MCV 86.8 fL (80.0-100.0); Mean Platelet Volume 7.8; Monocytes # (A) 0.3 k/uL (0-1.0); Monocytes % (A) 4 %; Neutrophils # (A) 4.1 k/uL (1.3-7.7); Neutrophils % (A) 52 %; Platelet Count 157 k/uL (150-450); RBC 4.55 m/uL (4.30-5.90); RDW 13.6 % (11.5-15.5)
[2018-09-07 10:20] LABS: Anion Gap 11 mmol/L; Blood Urea Nitrogen 12 mg/dL (9-20); Calcium 9.2 mg/dL (8.4-10.2); Carbon Dioxide 24 mmol/L (22-30); Chloride 108 mmol/L (98-107); Glucose 118 mg/dL (74-99); Potassium 3.8 mmol/L (3.5-5.1); Sodium 143 mmol/L (137-145)
[2018-09-07] MEDS: ASPIRIN 325 MG TAB PO SCH ×2 (12:17→12:18)
[2018-09-07] MEDS: CLOPIDOGREL 75 MG TAB PO SCH ×2 (12:17→12:18)
[2018-09-07 14:51] VITALS: BMI 30.4
--- NOTE | 2018-09-07 16:34 | XR ---
EXAMINATION TYPE: XR chest 2V DATE OF EXAM: 09/07/2018 COMPARISON: 07/13/2018 INDICATION: PFO placement TECHNIQUE: Frontal and lateral views of the chest are obtained. FINDINGS: The heart size is normal. The pulmonary vasculature is normal. The lungs are clear. IMPRESSION: 1. No acute pulmonary process.
[2018-09-07 20:00] VITALS: RESP 18
[2018-09-07] MEDS ORDERED: ATORVASTATIN 80 MG TAB PO SCH (21:00)
[2018-09-07] MEDS ORDERED: NON-FORMULARY DRUG (Aspirin [Adult Low Dose Aspirin Ec] 81 MG) PO SCH (21:00)
[2018-09-08] MEDS: CLOPIDOGREL 75 MG TAB PO SCH (08:24)
[2018-09-08] MEDS: ASPIRIN 325 MG TAB PO SCH (08:24)
--- NOTE | 2018-09-08 08:54 | XR ---
EXAMINATION TYPE: XR chest 2V DATE OF EXAM: 09/08/2018 COMPARISON: NONE TECHNIQUE: PA and lateral views submitted. HISTORY: PFO placement FINDINGS: The lungs are clear and there is no pneumothorax, pleural effusion, or focal pneumonia. Atheroscler otic change aorta. Hyperinflation suggests COPD. Hypertrophic change of the vertebral column. No over t failure. IMPRESSION: 1. No acute process.
[2018-09-08] MEDS ORDERED: ASPIRIN 325 MG TAB PO SCH (09:00)
[2018-09-08] MEDS ORDERED: NON-FORMULARY DRUG (Buprenorphine Hcl/Naloxone Hcl [Suboxone 8 Mg-2 Mg Sl Film] 1 FILM) SL SCH (09:00)
[2018-09-08] MEDS ORDERED: FAMOTIDINE 20 MG TAB PO SCH (09:00)
[2018-09-08] MEDS ORDERED: CLOPIDOGREL 75 MG TAB PO SCH (09:00)
[2018-09-08] MEDS ORDERED: ERGOCALCIFEROL 50,000 UNIT CAP PO SCH (09:00)
[2018-09-08 12:54] VITALS: BP 119/68; PULSE 56; TEMP 98.2
--- NOTE | 2018-09-08 12:54 | DS ---
DISCHARGE SUMMARY ADMISSION DATE: September 07, 2018. DISCHARGE DATE: September 08, 2018 BRIEF HISTORY: This is a pleasant 62-year-old gentleman who sees Dr. Garcia in the office as an outpatient who was admitted to the hospital yesterday and underwent successful percutaneous closure of patent foramen ovale with good results by the end and without any complication. The right groin is soft and nontender and without any bruises. The patient is going to be discharged home on dual antiplatelet therapy and he will follow up with Dr. Garcia in a week from now. MMODL / IJN: [id number] /
== END 2018-09-08 14:03 | disposition home or self-care (01) ==
LOC: CATHCVL 06:13 → 3SCARD 09:11 → CATHCVL 09-08 14:03
PROVIDERS: ATTEND Internal Medicine Interventional Cardiology
DX: Q21.1 Atrial septal defect (principal); Z79.82 Long term (current) use of aspirin; Z79.899 Other long term (current) drug therapy; E78.2 Mixed hyperlipidemia; G45.9 Transient cerebral ischemic attack, unspecified; Z86.73 Personal history of transient ischemic attack (TIA), and cerebral infarction without residual deficits
CPT/HCPCS: 71046; 80048; 85025; 86850; 86900; 86901; 93306; 93308; 93580; 93662

== ENCOUNTER 2023-06-20 18:59 | Emergency (ER) | payer MEDICARE ==
--- NOTE | 2023-06-20 19:26 | ED ---
Fall HPI - General Chief Complaint: Fall Stated Complaint: Rib pain/Fall Time Seen by Provider: 06/20/23 19:05 Source: patient, RN notes reviewed Mode of arrival: ambulatory Limitations: no limitations - History of Present Illness Initial Comments: 67-year-old male presents emergency Department chief complaint of right-sided rib pain. Patient states he is standing on a tire and the back of his truck she states that he is leaning over the edge of the truck bed when he slipped falling on the right side of his rib cage he states that he had increasing pain today he states his happened a few days ago he denies any shortness breath but states it hurts to take a deep breath denies any head injury no other complaints. - Related Data Home Medications Medication Instructions Recorded Confirmed Ergocalciferol (Vitamin D2) 50,000 unit PO TH 07/13/18 09/07/18 [Drisdol (50,000 Iu)] Ranitidine HCl [Zantac] 150 mg PO DAILY 07/13/18 09/07/18 Buprenorphine HCl/Naloxone HCl 1 film SL QAM 07/14/18 09/07/18 [Suboxone 8 mg-2 mg Sl Film] Nicotine Polacrilex [Nicotine Gum] 4 mg BUCCAL DIRECTED PRN 09/01/18 09/07/18 Previous Rx's Medication Instructions Recorded Aspirin [Adult Low Dose Aspirin EC] 81 mg PO BID #60 tablet. 07/17/18 Atorvastatin Calcium [Lipitor] 80 mg PO HS #30 tablet 07/17/18 Clopidogrel [Plavix] 75 mg PO DAILY #90 tab 09/08/18 Ibuprofen [Motrin] 600 mg PO Q8HR PRN #20 tab 06/20/23 Allergies Allergy/AdvReac Type Severity Reaction Status Date / Time No Known Allergies Allergy Unverified 06/20/23 19:04 Review of Systems ROS Statement: Those systems with pertinent positive or pertinent negative responses have been documented in the HPI. ROS Other: All systems not noted in ROS Statement are negative. Past Medical History Past Medical History: GERD/Reflux, Hyperlipidemia Additional Past Medical History / Comment(s): Chronic cervical and back pain, pancreatitis History of Any Multi-Drug Resistant Organisms: None Reported Past Surgical History: Hernia Repair, Orthopedic Surgery Additional Past Surgical History / Comment(s): cervial fusion c6-c7, bilateral rotator cuff repairs, hiatal hernia repair, colonoscopy Past Anesthesia/Blood Transfusion Reactions: No Reported Reaction Past Psychological History: No Psychological Hx Reported Smoking Status: Current every day smoker Past Alcohol Use History: None Reported Past Drug Use History: Marijuana - Past Family History Father Family Medical History: Cancer, Myocardial Infarction ([place]) Additional Family Medical History / Comment(s): Father from metatstatic lung cancer. Mother Family Medical History: Coronary Artery Disease (CAD), Myocardial Infarction ([place]) Additional Family Medical History / Comment(s): Mother from "old age" General Exam Limitations: no limitations General appearance: alert, in no apparent distress Head exam: Present: atraumatic, normocephalic, normal inspection Neck exam: Present: normal inspection, full ROM. Absent: tenderness, meningismus, lymphadenopathy Respiratory exam: Present: normal lung sounds bilaterally, chest wall tenderness (Right anterior lateral rib tenderness just below the nipple). Absent: respiratory distress, wheezes, rales, rhonchi, stridor Cardiovascular Exam: Present: regular rate, normal rhythm, normal heart sounds. Absent: systolic murmur, diastolic murmur, rubs, gallop, clicks GI/Abdominal exam: Present: soft, normal bowel sounds. Absent: distended, tenderness, guarding, rebound, rigid Course Vital Signs 06/20/23 06/20/23 19:01 19:08 Temperature 98.1 F Pulse Rate 71 Respiratory 24 22 Rate Blood Pressure 175/80 O2 Sat by Pulse 96 96 Oximetry Medical Decision Making - Medical Decision Making Was pt. sent in by a medical professional or institution (, PA, SPORTS INFORMATION DIRECTOR, urgent care, hospital, or fci...) When possible be specific @ -No Did you speak to anyone other than the patient for history (EMS, parent, family, police, friend...)? What history was obtained from this source @ -No Did you review nursing and triage notes (agree or disagree)? Why? @ -I reviewed and agree with nursing and triage notes Were old charts reviewed (outside hosp., previous admission, EMS record, old EKG, old radiological studies, urgent care reports/EKG's, fci records)? Report findings @ -No old charts were reviewed Differential Diagnosis (chest pain, altered mental status, abdominal pain women, abdominal pain men, vaginal bleeding, weakness, fever, dyspnea, syncope, headache, dizziness, GI bleed, back pain, seizure, CVA, palpatations, mental health, musculoskeletal)? @ -Rib contusion, rib fracture EKG interpreted by me (3pts min.). @ -None X-rays interpreted by me (1pt min.). @ -X-ray rib series right no acute fracture or pneumothorax CT interpreted by me (1pt min.). @ -None done U/S interpreted by me (1pt. min.). @ -None done What testing was considered but not performed or refused? (CT, X-rays, U/S, labs)? Why? @ -None What meds were considered but not given or refused? Why? @ -None Did you discuss the management of the patient with other professionals (professionals i.e. , PA, SPORTS INFORMATION DIRECTOR, lab, RT, psych nurse, secondary social studies teacher, filenet developer, teacher, loan officer, case management manager)? Give summary @ -No Was smoking cessation discussed for >3mins.? @ -No Was critical care preformed (if so, how long)? @ -No Were there social determinants of health that impacted care today? How? (Homelessness, low income, unemployed, alcoholism, drug addiction, transportation, low edu. Level, literacy, decrease access to med. care, skilled nursing, rehab)? @ -No Was there de-escalation of care discussed even if they declined (Discuss DNR or withdrawal of care, Hospice)? DNR status @ -No What co-morbidities impacted this encounter? (DM, HTN, Smoking, COPD, CAD, Cancer, CVA, ARF, Chemo, Hep., AIDS, mental health diagnosis, sleep apnea, morbid obesity)? @ -None Was patient admitted / discharged? Hospital course, mention meds given and route, prescriptions, significant lab abnormalities, going to OR and other pertinent info. @ -Discharge patient has a right-sided rib contusion we discussed possibly a nondisplaced fracture not identified. Patient was offered pain meds he states anything with Tylenol upsets his stomach. Patient we discharged in stable condition return parameters discussed. Undiagnosed new problem with uncertain prognosis? @ -No Drug Therapy requiring intensive monitoring for toxicity (Heparin, Nitro, Insulin, Cardizem)? @ -No Were any procedures done? @ -No Diagnosis/symptom? @ -Right rib contusion Acute, or Chronic, or Acute on Chronic? @ -Acute Uncomplicated (without systemic symptoms) or Complicated (systemic symptoms)? @ -Uncomplicated Side effects of treatment? @ -No Exacerbation, Progression, or Severe Exacerbation? @ -No Poses a threat to life or bodily function? How? (Chest pain, [place], [place], pneumonia, PE, COPD, DKA, ARF, appy, cholecystitis, CVA, Diverticulitis, Homicidal, Suicidal, threat to staff... and all critical care pts) @ -No Disposition Clinical Impression: Fall, Contusion of rib on right side Disposition: HOME SELF-CARE Condition: Stable Instructions (If sedation given, give patient instructions): Rib Contusion (ED) Additional Instructions: Please return to the Emergency Department if symptoms worsen or any other concerns. Prescriptions: Ibuprofen [Motrin] 600 mg PO Q8HR PRN #20 tab PRN Reason: Pain Is patient prescribed a controlled substance at d/c from ED?: No Referrals: Kenn Vela DO [Primary Care Provider] - 1-2 days Time of Disposition: 19:53
[2023-06-20 19:27] VITALS: RESP 22
--- NOTE | 2023-06-20 19:38 | XR ---
EXAMINATION TYPE: XR ribs RT w pa chest xray DATE OF EXAM: 06/20/2023 7:27 PM CLINICAL INDICATION:Male, 67 years old with history of pain; [facility] COMPARISON: 09/08/2017 TECHNIQUE: Frontal and oblique views of the right ribs with frontal chest radiograph. FINDINGS: Lung volumes are diminished with bibasilar opacities likely on the basis of atelectasis. No large pleural effusion, but trace effusions cannot be ruled out. No visible pneumothorax. Cardiac si lhouette appears mildly enlarged and likely exaggerated by the low lung volumes. Radiodensity over th e heart again seen suggesting ASD closure device again seen. Partially calcified mildly tortuous aort a. No discernible displaced or deforming rib fracture, however rib fractures may be radiographically occ ult until callus forms. Mild degenerative changes of the spine and shoulders. IMPRESSION: No radiographic evidence of rib fracture, or acute chest process.
[2023-06-20] MEDS ORDERED: IBUPROFEN 600 MG STARTER PACK 4 TAB BTL PO STA (19:52)
[2023-06-20 20:14] VITALS: BP 145/88; PULSE 90; TEMP 98
== END 2023-06-20 20:09 | disposition home or self-care (01) ==
LOC: EC 18:59
DX: S20.211A Contusion of right front wall of thorax, initial encounter (principal); F17.200 Nicotine dependence, unspecified, uncomplicated; F12.90 Cannabis use, unspecified, uncomplicated; W01.0XXA Fall on same level from slipping, tripping and stumbling without subsequent striking against object, initial encounter
CPT/HCPCS: 99284

== ENCOUNTER → 2024-03-13 | Outpatient (CLI) | payer MEDICARE ==
[2024-03-13 19:34] LABS: Chol/HDL Ratio 10.69 Ratio; HDL Cholesterol 29.1 mg/dL (40.00-60.00); VLDL Calculation 306.8 mg/dL (5.00-40.00)
[2024-03-14 05:24] LABS: LDL Cholesterol,Direct Reflex 43.1 mg/dL (0.00-129.00)
== END | disposition home or self-care (01) ==
LOC: LABWHC1 12:45
PROVIDERS: ATTEND Internal Medicine Cardiovascular Disease
DX: E78.2 Mixed hyperlipidemia (principal)
CPT/HCPCS: 36415; 80061; 83721; 84450; 84460